=== PATIENT | male | born 1945 | race Caucasian/White ===

== ENCOUNTER 2018-07-15 10:11 | Outpatient (CLI) | payer OTHER ==
--- NOTE | 2018-07-15 12:19 | RAD ---
2 VIEW CHEST: Date: 07/15/18 HISTORY: Dyspnea. No comparison available left lower extremity. There is a patchy area of hazy infiltrate in the right upper lobe, worrisome for pneumonia. Lungs otherwise appear clear. There is mild hyperexpansion with flattened diaphragms. Heart size norm al. Mediastinum unremarkable. Osseous structures unremarkable. IMPRESSION: Hazy infiltrative density in the right upper lobe. Follow-up recommended. CODE T. POS: [facility]
== END 2018-07-15 10:12 | disposition home or self-care (01) ==
LOC: RAD 10:11
PROVIDERS: ATTEND Internal Medicine
DX: R06.00 Dyspnea, unspecified (principal); R91.8 Other nonspecific abnormal finding of lung field
CPT/HCPCS: 71046

== ENCOUNTER 2018-07-28 08:22 | Outpatient (CLI) | payer OTHER | END 2018-07-28 08:23 | disposition home or self-care (01) | LOC: CP 08:22 | PROVIDERS: ATTEND Internal Medicine | DX: R91.8 Other nonspecific abnormal finding of lung field (principal); J44.9 Chronic obstructive pulmonary disease, unspecified; Z72.0 Tobacco use | CPT/HCPCS: 94060; 94727; 94729 ==

== ENCOUNTER 2018-07-28 09:51 | Outpatient (CLI) | payer OTHER ==
--- NOTE | 2018-07-28 16:01 | PET ---
RADIONUCLIDE PET SCAN WITH CT ATTENUATION CORRECTION: HISTORY: Lung nodule. FINDINGS: Correlated with report from CT at the [facility] in [place] dated 07/13/18. Images from that exam are not available for direct correlation. Physiologic uptake of radiotracer is present throughout the enteric system and along each urinary tra ct. In the area of mass, in the posterior segment of right upper lobe, maximum SUV is 2.1. No other areas of increased radiotracer uptake are apparent within the lungs. Particular attention was paid to the area of the largest other nodule in the left upper lobe. No evidence of hypermetabolic adenopathy of the mediastinum. At the right parotid tail, a focus of increased radiotracer uptake shows a maximum SUV of 6.2. A very small soft tissue density nodule is noted on the nondiagnostic CT attenuation correction images of t he same location. At the left parotid tail, a small focus of increased uptake shows a maximum SUV of 3.9. Again, there is a tiny soft tissue density nodule on the CT images at the same location. Calcifications are apparent throughout the arterial structures. Degenerative changes of lumbar spine. IMPRESSION: 1. The large right upper lobe mass shows uptake only borderline for hypermetabolic activity, making neoplasm much less likely. No evidence of mediastinal adenopathy or distant metastasis. Neoplasm woul d be unlikely given that this large lung mass is not more hypermetabolic. 2. Incidental note of tiny hypermetabolic nodules within each parotid tail as detailed above. Please consider ENT consultation for consideration of further care. POS: [facility]
== END 2018-07-28 09:52 | disposition home or self-care (01) ==
LOC: PET 09:51
PROVIDERS: ATTEND Internal Medicine
DX: R91.8 Other nonspecific abnormal finding of lung field (principal); K11.8 Other diseases of salivary glands
CPT/HCPCS: 78815; 94060; 94727; 94729; A9552

== ENCOUNTER 2019-02-24 09:10 | Outpatient (CLI) | payer OTHER ==
--- NOTE | 2019-02-24 11:00 | CT ---
CT OF THE CHEST: Date: 02/24/2019 COMPARISON: PET/CT 07/28/2018. HISTORY: Pulmonary mass. TECHNIQUE: Axial CT imaging at 3 mm intervals from the thoracic inlet through the upper abdomen witho ut contrast. Coronal reformatted imaging obtained. FINDINGS: The lack of IV contrast media limits assessment of the images viscera, vascular structures, and for l ymphadenopathy. Stable small low-density lesions are noted in the left lobe of the liver, too small to characterize, statistically likely representing small cysts. Punctate nonobstructing stone noted in upper pole of right kidney. Mild scattered atherosclerotic calcification of the imaged abdominal aorta noted. No pleural, pericardial, or mediastinal fluid is seen. Limited evaluation for lymphadenopathy appears unremarkable. There are prominent emphysematous changes bilaterally with an upper lobe predominance. There is a mass within the right lung apex. This posterior right upper lobe lesion measures 3.7 x 2.5 cm, unchanged in size when compared to the prior PET/CT. Superiorly it demonstrates areas of internal lucency suggesting cavitary change and/or internal bronchiectatic change, similar when susi red to the prior examination. There is a stable tiny nodule within the anterior aspect of the right upper lobe on image 107 measuri ng approximately 4 mm. Subcentimeter peripheral irregular nodular densities are noted within the lateral inferior right lower lobe measuring up to 6 mm, stable as well. Stable peripheral areas of no dularity are noted within the inferior medial right upper lobe measuring up to 1 cm, unchanged when compared to the prior PET/CT. Multiple subcentimeter inferior left lower lobe pulmonary nodules are noted, unchanged when compared to prior PET/CT, measuring up to approximately 6 mm. There is a left upper lobe nodule on axial image 98 measuring approximately 1.1 cm in AP dimension, n ot significantly changed. No new pulmonary nodule is noted. Review of osseous structures demonstrates no suspicious lytic or blastic bone lesion. IMPRESSION: Stable dominant mass within right upper lobe as detailed above. Numerous stable bilateral pulmonary n odules. Continued follow-up advised. Transcribed Date/Time: 02/24/2019 11:41 AM
== END 2019-02-24 09:11 | disposition home or self-care (01) ==
LOC: BICCT 09:10
PROVIDERS: ATTEND Internal Medicine
DX: R91.8 Other nonspecific abnormal finding of lung field (principal)
CPT/HCPCS: 71250

== ENCOUNTER 2019-09-20 09:54 | Outpatient (CLI) | payer OTHER ==
--- NOTE | 2019-09-20 11:04 | CT ---
CT CHEST WITH CONTRAST: History: Abnormal finding of lung field. Comparison: CT chest February 24, 2019. Findings: The right upper lobe mass with peripheral cicatrization has not grown. Greatest transverse dimension in the axial plane is 3.5 cm, similar. Anterior lingular nodule is unchanged. Small left basilar nodules have not grown. Peripheral scarring right lung base ui similar. No new suspicious pulmonary nodule. Severe centrilobular emphysema. Sternum and manubrium are intact. Thoracic spine is intact. Limited evaluation of the upper abdomen demonstrates multiple hypodensities left lobe of the liver which are similar in size. Old right rib fractures. No new rib f racture. Impression: Unchanged multiple pulmonary nodules with dominant nodule right upper lobe with peripheral cicatrizat ion likely sequelae of scar. Transcribed Date/Time: 09/20/2019 11:08 AM
[2019-09-20] MEDS ORDERED: Iopamidol 370 76% 100 ML VIAL ONE (13:50)
== END 2019-09-20 09:55 | disposition home or self-care (01) ==
LOC: CT 09:54
PROVIDERS: ATTEND Internal Medicine
DX: R91.8 Other nonspecific abnormal finding of lung field (principal); R91.1 Solitary pulmonary nodule
CPT/HCPCS: 71260; 82565; Q9967

== ENCOUNTER 2020-04-15 09:00 | Outpatient (CLI) | payer OTHER ==
--- NOTE | 2020-04-15 09:37 | CT ---
CT OF THE THORAX WITHOUT IV CONTRAST: Date: 04/15/2020 INDICATION: History of COPD and pulmonary nodules. COMPARISON: Prior CT of the thorax dated 02/24/2019 and 09/20/2019. FINDINGS: Moderate to severe emphysema is stable. Large 3.3 x 2.2 cm nodule within the right upper lobe with surrounding retractile scar and bronchiect asis is stable. The other subcentimeter nodules scattered throughout both lungs are stable. No new montero spicious pulmonary nodule identified. No pleural effusion or air space consolidation is evident. Vascular calcifications of the thoracic ao rta and coronary arteries are similar appearing. Visualized upper abdomen is unremarkable for acute a bnormality. There is scattered degenerative and osteoarthritic change. There is stable postsurgical change of a right partial rib resection involving the right lateral sixt h rib. There is healed deformity involving the right lateral seventh and eighth ribs. IMPRESSION: 1. Stable examination of the chest with stable bilateral pulmonary nodules. Follow-up examination in 6-12 months is recommended to document stability. 2. Stable emphysema. POS: [facility]
== END 2020-04-15 09:01 | disposition home or self-care (01) ==
LOC: BICCT 09:00
PROVIDERS: ATTEND Internal Medicine Critical Care Medicine
DX: R91.8 Other nonspecific abnormal finding of lung field (principal); J43.9 Emphysema, unspecified
CPT/HCPCS: 71250

== ENCOUNTER 2021-04-08 08:51 | Outpatient (CLI) | payer OTHER | END 2021-04-08 08:52 | disposition home or self-care (01) | LOC: BICCT 08:51 | PROVIDERS: ATTEND Internal Medicine Critical Care Medicine | DX: R91.8 Other nonspecific abnormal finding of lung field (principal); N20.0 Calculus of kidney; K76.9 Liver disease, unspecified | CPT/HCPCS: 71250 ==

== ENCOUNTER 2022-04-07 09:37 | Outpatient (CLI) | payer OTHER | END 2022-04-07 09:38 | disposition home or self-care (01) | LOC: BICCT 09:37 | PROVIDERS: ATTEND Internal Medicine Critical Care Medicine | DX: R91.8 Other nonspecific abnormal finding of lung field (principal); J43.2 Centrilobular emphysema | CPT/HCPCS: 71250 ==

== ENCOUNTER 2023-04-01 09:49 | Outpatient (CLI) | payer OTHER | END 2023-04-01 09:50 | disposition home or self-care (01) | LOC: CT 09:49 | PROVIDERS: ATTEND Internal Medicine Critical Care Medicine | DX: R91.1 Solitary pulmonary nodule (principal); J98.4 Other disorders of lung | CPT/HCPCS: 71250 ==

== ENCOUNTER 2024-05-09 08:30 | Outpatient (CLI) | payer OTHER | END 2024-05-09 08:31 | disposition home or self-care (01) | LOC: BICCT 08:30 | PROVIDERS: ATTEND Internal Medicine Critical Care Medicine | DX: Z12.2 Encounter for screening for malignant neoplasm of respiratory organs (principal); F17.218 Nicotine dependence, cigarettes, with other nicotine-induced disorders | CPT/HCPCS: 71271 ==

== ENCOUNTER 2025-06-14 08:35 | Outpatient (CLI) | payer OTHER | END 2025-06-14 08:36 | disposition home or self-care (01) | LOC: BICCT 08:35 | PROVIDERS: ATTEND Internal Medicine Critical Care Medicine | DX: Z12.2 Encounter for screening for malignant neoplasm of respiratory organs (principal); F17.218 Nicotine dependence, cigarettes, with other nicotine-induced disorders; I25.10 Atherosclerotic heart disease of native coronary artery without angina pectoris; J43.9 Emphysema, unspecified | CPT/HCPCS: 71271 ==